=== PATIENT | male | born 1980 | race Caucasian/White ===

== ENCOUNTER → 2019-07-27 | Day surgery (SDC) | payer BC ==
[~2019-07-27] MED LIST: AMAN100T PO; ENOX40DI SQ; ESCITALOPRAM OX10 MG PO; FAMO20TA5 PO; GABA600T7 PO; IV RINGERS,LACTATED 1000ML 1,000 ML IV ONE; LEVE100020 PO; LIDOCAINE 2% PF 5 ML VIAL. ONE; PROPOFOL 20 ML IV ONE
--- NOTE | 2019-07-27 16:15 | PDOC ---
G I PROGRESS NOTE Reason for Follow-up Un-necessary g-tube. Removal. Subjective Presents with G-tube needing removed as not longer using. Objective Uncooperative with procedure, so sedated with propofol per anesthesia. Physical Exam Lungs clear. RRR Abdomen soft, not tender nor distended. Gutiérrez-type g-tube. After sedation, balloon deflated and tube removed. Bandages applied. Tolerated well. Review of Relevant I have reviewed the following items marilin (where applicable) has been applied. Medications Active Scripts Active Reported Keppra (Levetiracetam) 1,000 Mg Tablet 1,000 Mg PO BID Gabapentin 600 Mg Tablet 300 Mg PO TID Famotidine 20 Mg Tablet 20 Mg PO BID Escitalopram Oxalate 10 Mg Tablet 10 Mg PO DAILY Lovenox (Enoxaparin Sodium) 40 Mg/0.4 Ml Disp.syrin 40 Mg SQ DAILY Amantadine (Amantadine Hcl) 100 Mg Tablet 100 Mg PO BID Vitals/I & O Vital Sign - Last 24 Hours 07/27/19 14:34 Temp 97.3 97.3 Pulse 68 Resp 20 Pulse Ox 97 Assessment Un-needed G-tube--removed. Plan of Care Note Change bandage prn; drainage should be minimal and stop w/in 24 hours. F/u with me prn. NICOLAS VILLANUEVA MD Jul 27, 2019 16:15
[2019-07-27 16:23] VITALS: BP 115/86
== END ==
LOC: SURG 14:00
PROVIDERS: ATTEND Internal Medicine Gastroenterology
DX: Z46.59 Encounter for fitting and adjustment of other gastrointestinal appliance and device (principal); G47.30 Sleep apnea, unspecified; F32.9 Major depressive disorder, single episode, unspecified; Z87.891 Personal history of nicotine dependence; Z93.0 Tracheostomy status
CPT/HCPCS: G0463; J2001; J2704